=== PATIENT | female | born 1975 | race Caucasian/White ===

== ENCOUNTER → 2020-04-11 13:41 | Outpatient (CLI) | payer BC, SELFPAY ==
--- NOTE | ~2020-04-11 | MM_ITS ---
EXAMINATION: MM screening maciel BI w shabana HISTORY: Screening mammogram TECHNIQUE: Craniocaudal and mediolateral oblique 3-D tomosynthesis images were obtained and synthetic 2-D images were generated. CAD analysis was submitted and interpreted. COMPARISON: 11/05/2018 BREAST PARENCHYMAL COMPOSITION: The breasts are heterogeneously dense, which may obscure small masses . FINDINGS: RIGHT BREAST: There is focal asymmetry in the upper outer quadrant of the breasts. LEFT BREAST: There is no evidence of suspicious mass, calcification, or architectural distortion to s uggest malignancy. There has been no significant interval change. IMPRESSION: 1. Focal asymmetry in the upper outer quadrant of the right breast. 2. Additional mammographic views and possible breast ultrasound are recommended. BI-RADS Category 0: Incomplete: Needs additional imaging evaluation. Reviewed, dictated and finalized at location A. IMPRESSION: 1. Focal asymmetry in the upper outer quadrant of the right breast. 2. Additional mammographic views and possible breast ultrasound are recommended . BI-RADS Category 0: Incomplete: Needs additional imaging evaluation.
== END ==
PROVIDERS: PCP Family Medicine; Visit Provider Obstetrics & Gynecology
DX: Z12.31 Encounter for screening mammogram for malignant neoplasm of breast (principal); R92.8 Other abnormal and inconclusive findings on diagnostic imaging of breast
CPT/HCPCS: 77063; 77067

== ENCOUNTER → 2020-04-26 08:23 | Outpatient (CLI) | payer BC, SELFPAY ==
--- NOTE | ~2020-04-26 | MMUS_ITS ---
EXAMINATION: MM diagnostic mammo unilat RT, US breast RT limited HISTORY: Follow-up right breast asymmetry TECHNIQUE: Additional 3-D tomosynthesis images of the right breast were performed and synthetic 2-D i mages were generated. CAD analysis was submitted and interpreted. High resolution right breast ultras ound was performed. COMPARISON: Comparison to multiple prior studies sequentially, with oldest reviewed study dated 11/05. BREAST PARENCHYMAL COMPOSITION: The breasts are heterogenously dense, which may obscure small masses. FINDINGS: MAMMOGRAPHIC FINDINGS: There is focal asymmetry in the superior aspect of the right breast which is obscured by dense fibrog landular tissue. ULTRASOUND: Right breast ultrasound: At 10:00, 4 cm from the nipple there is a 1.5 cm cyst corresponding to the area of mammographic abnor mality. No suspicious masses to suggest malignancy. IMPRESSION: 1. No evidence for malignancy of the right breast. 2. Routine yearly screening mammogram and regular clinical breast examination are recommended. BI-RADS Category 2: Benign finding(s). Reviewed, dictated and finalized at location A. IMPRESSION: 1. No evidence for malignancy of the right breast. 2. Routine yearly screening mammogram and regular clinical breast examination a re recommended. BI-RADS Category 2: Benign finding(s).
== END ==
PROVIDERS: PCP Family Medicine; Visit Provider Obstetrics & Gynecology
DX: R92.8 Other abnormal and inconclusive findings on diagnostic imaging of breast (principal)
CPT/HCPCS: 76642; 77065

== ENCOUNTER → 2020-09-18 15:43 | Outpatient (REF) | payer BC, SELFPAY | LOC: ANHLAB 15:43 | PROVIDERS: PCP Family Medicine; Visit Provider Nurse Practitioner | DX: L98.9 Disorder of the skin and subcutaneous tissue, unspecified (principal) | CPT/HCPCS: 88305 ==

== ENCOUNTER → 2020-10-26 15:24 | Outpatient (REF) | payer BC, SELFPAY | LOC: ANHLAB 15:24 | PROVIDERS: PCP Family Medicine; Visit Provider Nurse Practitioner | DX: D22.5 Melanocytic nevi of trunk (principal) | CPT/HCPCS: 88305 ==

== ENCOUNTER 2021-01-29 19:33 | Emergency (ER) | payer BC, SELFPAY ==
[2021-01-29] VITALS (19 sets, daily range): BP systolic 93–129; BP diastolic 37–105; PULSE 62–154; RESP 12–21; TEMP 36.7; O2SAT 99–100
--- NOTE | ~2021-01-29 | XR_ITS ---
EXAMINATION: XR chest 2V EXAM DATE: 01/29/2021 20:11 INDICATION: Tachycardia for 2 days. TECHNIQUE: Frontal and lateral projections of the chest obtained and reviewed. There is no prior mo dy for comparison. FINDINGS: The lungs are clear. There are no pleural effusions. The cardiomediastinal silhouette is within normal limits. There is no pneumothorax suspected. Mild lower thoracic dextroscoliosis. IMPRESSION: No acute cardiopulmonary findings. Reviewed, dictated and finalized at location A.
--- NOTE | 2021-01-29 19:45 | ECG_ITS ---
Measurements Intervals [place] Rate: 153 P: CT: 0 QRS: 52 QRSD: 77 T: 0 QT: 165 QTc: 264 Interpretive Statements ATRIAL FLUTTER/TACHYCARDIA WITH RAPID VENTRICULAR RESPONSE INCOMPLETE RIGHT BUNDLE BRANCH BLOCK ST-T WAVE ABNORMALITY IN ANTEROLAT/INF LEADS- CONSIDER ISCHEMIA ABNORMAL ECG Electronically Signed On 01-29-2021 20:19:38 CDT by Blue Ledesma D.O.
[2021-01-29 19:55] LABS: Basophils Percent Auto 0.6 % (0.2-1.2); Eosinophils Absolute Auto 0.2 K/mm3 (0-0.3); Eosinophils Percent Auto 2.5 % (0-4.4); Hematocrit 41.3 % (37.0-47.0); Hemoglobin 13.5 g/dL (12.0-15.0); Immature Granulocyte Absolute 0.02 K/mm3 (0.00-0.031); Immature Granulocyte Percent A 0.3 % (0-0.5); Lymphocytes Absolute Auto 2.18 K/mm3 (0.9-3.2); Mean Corpuscular HGB Conc 32.7 g/dl (32-36); Mean Corpuscular Volume 88.6 fl (80-100); Mean Platelet Volume 9.6 fl (7.4-10.4); Monocytes Absolute Auto 0.6 K/mm3 (0.1-0.6); Monocytes Percent Auto 7.8 % (2.6-8.5); Neutrophils Absolute Auto 4.3 K/mm3 (1.3-6.7); Neutrophils Percent Auto 58.8 % (45.5-73.1); Platelet Count Result 306 k/mm3 (150-375); Red Blood Count 4.66 M/mm3 (4.2-5.4); Red Cell Distribution Width 12.6 % (11.5-14.5); White Blood Count 7.3 K/mm3 (4.5-10.0)
[2021-01-29 20:05] LABS: Anion Gap 6 mmol/L (8-16); Blood Urea Nitrogen 14 mg/dL (7-17); Calcium 9.7 mg/dL (8.4-10.2); Carbon Dioxide 29 mmol/L (22-30); Chloride 107 mmol/L (98-107); Estimated CRCL calculation 71 ml/min; Estimated Glomerular Filt Rate > 60; Glucose 94 mg/dL (65-110); Potassium 4.1 mmol/L (3.4-5.0); Sodium 142 mmol/L (137-145)
[2021-01-29 20:09] LABS: Partial Thromboplastin Time 31.5 SECONDS (22.3-36.8); Prothrombin Time 12.7 Seconds (11.1-14.7)
[2021-01-29 20:17] LABS: Troponin I < 0.012 ng/mL (0.000-0.034)
[2021-01-29] MEDS: ASPIRIN 81 MG CHEWABLE TABLET 324 MG PO (20:49)
--- NOTE | 2021-01-29 21:03 | ED.GENADULT ---
HPI - General Adult General Chief complaint: Arrhythmia/Palpitations Stated complaint: palpations Time Seen by Provider: 01/29/21 20:40 Source: patient History of Present Illness HPI narrative: Patient is a 45 y/o female complaining of heart palpitation starting 4 hours ago. She describes her palpitation as heart beating fast. There is no known alleviating or exacerbating factor. She has some mild SOB and chest tightness. Of note, she had a similar episode 2 days ago, which resolved spontaneously. Related Data Allergies Allergy/AdvReac Type Severity Reaction Status Date / Time No Known Allergies Allergy Verified 01/29/21 19:44 Review of Systems Constitutional: Constitutional: Denies chills, Denies fever(s), Denies headache(s) and Denies weakness Eyes: Eyes: Denies blurry vision ENT: Denies headache(s) and Denies neck pain Cardiovascular: Cardiovascular: Reports chest pain, Reports rapid heart rate and Reports dyspnea Respiratory: Respiratory: Denies cough and Reports dyspnea Gastrointestinal: Gastrointestinal: Denies abdominal pain, Denies diarrhea, Denies nausea and Denies vomiting Genitourinary: Genitourinary: Denies hematuria and Denies dysuria Musculoskeletal: Musculoskeletal: Denies back pain and Denies neck pain Neurologic: Denies headache(s) and Denies weakness Exam Const: General: no acute distress and well developed Orientation/consciousness: oriented to person, oriented to place, oriented to time and patient oriented x3 HENMT: Head: normocephalic Ears: external ears normal General nose exam: Normal external nose present Eyes: General: appearance normal, both eyes and all related structures Conjunctivae: conjunctivae normal Neck: Neck: normal visual inspection and full ROM Chest: Chest palpation & inspection: normal inspection of the chest and no tenderness Resp: Effort & Inspection: normal respiratory effort Auscultation: clear to auscultation bilaterally Cardio: Rate: tachycardic Rhythm: regular rhythm GI: GI Palp: No abdominal tenderness and Yes Soft to palpation Skin: General skin exam: normal color and turgor normal Neuro: General: oriented to person, oriented to place, oriented to time and patient oriented x3 Cognition (Neuro): normal cognition Extrem: General: normal to inspection, full ROM and no pedal edema Psych: Appearance: grossly normal Mental Status: mental status grossly normal Affect: normal affect Course Reevaluation(s) Reevaluation #1: Rechecked. Patient feels well. She has no heart palpitation, chest pain or SOB at this time. I instructed patient to follow with Dr. Baker. Date: 01/29/21 Time: 23:35 Consultations Consultation #1: Discussed with Dr. Baker, who reviewed EKG and recommends discharging patient on Metoprol 25 mg daily and they will contact patient tomorrow for follow up. Date: 01/29/21 Time: 23:31 Vital Signs Vital signs: Vital Signs Temperature 36.7 C 01/29/21 19:40 Pulse Rate 153 H 01/29/21 19:40 Respiratory Rate 20 01/29/21 19:40 Blood Pressure 118/48 L 01/29/21 19:40 Pulse Oximetry 100 01/29/21 19:40 Temperature 36.7 C 01/29/21 19:40 Pulse Rate 67 01/29/21 22:45 Respiratory Rate 13 01/29/21 22:45 Blood Pressure 96/65 L 01/29/21 22:16 Pulse Oximetry 100 01/29/21 22:45 Medical Decision Making Vital Signs Vital Signs: Vital Signs Temperature 36.7 C 01/29/21 19:40 Pulse Rate 153 H 01/29/21 19:40 Respiratory Rate 20 01/29/21 19:40 Blood Pressure 118/48 L 01/29/21 19:40 Pulse Oximetry 100 01/29/21 19:40 Temperature 36.7 C 01/29/21 19:40 Pulse Rate 67 01/29/21 22:45 Respiratory Rate 13 01/29/21 22:45 Blood Pressure 96/65 L 01/29/21 22:16 Pulse Oximetry 100 01/29/21 22:45 Lab Data Result diagrams: 01/29/21 19:48 01/29/21 19:48 Labs: Lab Results 01/29/21 01/29/21 01/29/21 Range/Units 19:48 19:48 19:48 WBC 7.3 (4.5-10.0) K/mm3 RBC
[2021-01-29 21:24] LABS: Add Urine Microscopic? YES; Amorphous Sediment Urine Few; Appearance Urine Clear (Clear); Bacteria Urine Trace /hpf; Bilirubin Urine Negative (Negative); Blood Urine 3+ (Negative); Color Urine Yellow (Yellow); Glucose Urine UA Negative (Negative); Ketones Urine Negative (Negative); Leukocyte Esterase Ur Negative LEU/UL (Negative); Mucus Urine Rare /lpf; Nitrate Urine Negative (Negative); Protein Urine 1+ mg/dL (Negative); RBC Urine >75 /hpf (0-2); Specific Grav Ur 1.016 (1.001-1.035); Squamous Epithelial Cell Urine Few /hpf (Few); Urobilinogen Urine Negative mg/dL (<2.0); WBC Urine 0-3 /hpf
--- NOTE | 2021-01-29 22:05 | ECG_ITS ---
Measurements Intervals [place] Rate: 80 P: 75 GA: 119 QRS: 69 QRSD: 83 T: 33 QT: 355 QTc: 410 Interpretive Statements SINUS RHYTHM WITH SHORT GA INTERVAL INCOMPLETE RIGHT BUNDLE BRANCH BLOCK BASELINE ARTIFACT- I, II, AVR, AVL, AVF, V1, V3-V6 BORDERLINE ECG Electronically Signed On 01-30-2021 6:39:26 CDT by Blue Ledesma D.O.
[2021-01-29] MEDS: SODIUM CHLORIDE 0.9% IV 1,000 ML 999 ML IV CONT (22:32)
[2021-01-29 23:02] LABS: Troponin I < 0.012 ng/mL (0.000-0.034)
[2021-01-30 00:05] VITALS: BP 96/65; PULSE 88; RESP 18; O2SAT 100
== END 2021-01-30 00:06 | disposition home or self-care (01) ==
PROVIDERS: Emergency Medicine; Emergency Provider Emergency Medicine; PCP Family Medicine
DX: I48.92 Unspecified atrial flutter (principal); R00.0 Tachycardia, unspecified; R06.02 Shortness of breath; R07.9 Chest pain, unspecified
CPT/HCPCS: 36415; 71046; 80048; 81001; 81025; 84443; 84484; 85025; 85610; 85730; 93005; 96360; 99284; A9270; J7030

== ENCOUNTER → 2021-04-13 07:53 | Outpatient (CLI) | payer BC, SELFPAY ==
--- NOTE | ~2021-04-13 | MM_ITS ---
EXAMINATION: MM diagnostic maciel BI w shabana HISTORY: Fibrocystic breast disease TECHNIQUE: Additional 3-D tomosynthesis images of the breasts were performed and synthetic 2-D images were generated. CAD analysis was submitted and interpreted. COMPARISON: Comparison to multiple prior studies sequentially, with oldest reviewed study dated 11/05. BREAST PARENCHYMAL COMPOSITION: The breasts are heterogenously dense, which may obscure small masses. FINDINGS: No significant change to mass in the upper outer quadrant of the right breast which is obsc ured by overlying fibroglandular tissue, previously characterized as a cyst by ultrasound. No new mas ses, calcifications or architectural distortion to suggest malignancy. IMPRESSION: 1. No mammographic evidence for malignancy in either breast. 2. Routine yearly screening mammogram and regular clinical breast examination are recommended. BI-RADS Category 2: Benign finding(s). Reviewed, dictated and finalized at location A. IMPRESSION: 1. No mammographic evidence for malignancy in either breast. 2. Routine yearly screening mammogram and regular clinical breast examination a re recommended. BI-RADS Category 2: Benign finding(s).
== END ==
PROVIDERS: PCP Family Medicine; Visit Provider Obstetrics & Gynecology
DX: R92.8 Other abnormal and inconclusive findings on diagnostic imaging of breast (principal)
CPT/HCPCS: 77062; 77066; G0279

== ENCOUNTER → 2022-04-29 08:17 | Outpatient (CLI) | payer BC, SELFPAY ==
--- NOTE | ~2022-04-29 | MMUS_ITS ---
EXAMINATION: MM diagnostic maciel BI w shabana, US breast RT complete HISTORY: Fibrocystic breast disease TECHNIQUE: Additional 3-D tomosynthesis images of the breasts were performed and synthetic 2-D images were generated. CAD analysis was submitted and interpreted. High resolution complete right breast ul trasound was performed. COMPARISON: Comparison to multiple prior studies sequentially, with oldest reviewed study dated 11/05. BREAST PARENCHYMAL COMPOSITION: The breasts are heterogeneously dense, which may obscure small masses FINDINGS: MAMMOGRAPHIC FINDINGS: No discrete mass, suspicious cluster of calcifications or architectural distortion is identified in e ither breast. ULTRASOUND: Complete right breast US of all 4 quadrants of the breasts and retroareolar region was reviewed. At 4 :00, 4 cm from the nipple, there is a 3 mm cyst. At 9:00, 4 cm from the nipple, there is a 5 mm cyst. At 10:00, 4 cm from the nipple there is an 11 mm cyst. No suspicious masses to suggest malignancy. IMPRESSION: 1. No evidence for malignancy in either breast. 2. Routine yearly screening mammogram and regular clinical breast examination are recommended. BI-RADS Category 2: Benign finding(s). Reviewed, dictated and finalized at location A. IMPRESSION: 1. No evidence for malignancy in either breast. 2. Routine yearly screening mammogram and regular clinical breast examination a re recommended. BI-RADS Category 2: Benign finding(s).
== END ==
PROVIDERS: PCP Physician Assistant; Visit Provider Obstetrics & Gynecology
DX: N60.11 Diffuse cystic mastopathy of right breast (principal); N60.12 Diffuse cystic mastopathy of left breast
CPT/HCPCS: 76641; 77062; 77066; G0279

== ENCOUNTER 2022-07-20 16:02 | Emergency (ER) | payer OTHER, SELFPAY ==
--- NOTE | ~2022-07-20 | CT_ITS ---
EXAMINATION: CTA chest PE protocol DATE: 07/20/2022 18:10 INDICATION: Chest pain w/ mild dyspnea x 4 days, elevated D-dimer TECHNIQUE: Computed tomography angiography (CTA) of the chest was performed with 100 mL Omnipaque-350 intravenous contrast timed to evaluate the pulmonary arteries. Coronal maximum intensity projection 3D-reconstructions were created by the technologist. The dose-length product (DLP) was 230.40 mGy-cm. Automated exposure control and iterative reconstruction technique were employed. COMPARISON: None. FINDINGS: Lung parenchyma and airways: Dependent atelectasis/scar. Pleura: Unremarkable. Thoracic inlet, axillae and chest wall: Unremarkable. Thoracic aorta: Normal. Mediastinum: Normal. Heart and pericardium: Normal. Coronary artery calcifications: Absent. Upper abdomen: No significant finding. Bones: No acute osseous finding. Pulmonary arteries: Study quality: Adequate. No pulmonary emboli detected. IMPRESSION: No CT evidence of acute pulmonary embolus. Reviewed, dictated and finalized at location K. RNET SOURCER
--- NOTE | ~2022-07-20 | XR_ITS ---
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 RESULT: Lines, tubes, and devices: None. Lungs and pleura: Minimal linear bibasilar opacities likely represent scar/atelectasis. Cardiomediastinal silhouette: Stable. Other: No acute osseous or upper abdominal finding. IMPRESSION: No acute cardiopulmonary process. Reviewed, dictated and finalized at location K. R BAG MAKING MACHINIST
[2022-07-20 16:05] VITALS: PULSE 97
--- NOTE | 2022-07-20 16:12 | ECG_ITS ---
Measurements Intervals [place] Rate: 80 P: 71 MS: 135 QRS: 80 QRSD: 94 T: 42 QT: 351 QTc: 407 Interpretive Statements SINUS RHYTHM NORMAL ECG NO PREVIOUS ECG AVAILABLE FOR COMPARISON Electronically Signed On 07-20-2022 16:35:16 CELL FEED DEPARTMENT SUPERVISOR by Blue Ledesma D.O.
[2022-07-20 16:16] VITALS: BP 105/64; PULSE 97; RESP 16; TEMP 36.9; O2SAT 97
--- NOTE | 2022-07-20 16:16 | ED.CHESTPAIN ---
HPI - Chest Pain General Chief Complaint: Chest Pain Stated Complaint: chest pains has been diagnosed with Afib Time Seen by Provider: 07/20/22 16:16 Source: patient and RN notes reviewed Mode of arrival: ambulatory Limitations: no limitations History of Present Illness HPI narrative: patient has been having some chest pressure the 1st 2 days then last evening had chest pain and shortness of breath. No nausea vomiting or diaphoresis. Patient has a history of atrial fibrillation after a COVID vaccine and was taken off all medications for atrial fibrillation by her medicinal chemist. MD complaint: chest discomfort Onset (ago): day(s) (4) Onset: during rest Pain location: substernal Pain radiation: none Severity: moderate Quality: dull and burning Relieving factors: nothing Exacerbating factors: nothing Associated symptoms: dyspnea Treatment prior to arrival: none Risk Factors Coronary artery disease risk factors: cocaine use (AFIB) Thoracic aortic dissection risk factors: none Related Data Allergies Allergy/AdvReac Type Severity Reaction Status Date / Time No Known Allergies Allergy Verified 07/20/22 16:21 Review of Systems Constitutional: Constitutional: Denies excessive sweating Gastrointestinal: Gastrointestinal: Denies nausea and Denies vomiting PMFSH Past Medical History Medical History (Updated 07/20/22 @ 18:47 by El Manzanares MD) Abnormal mammogram 04-11-2020 right breast focal asymmetry dx mammogram and US done 04/26/2020 Benign recommend Annual screening Abnormal Pap smear of cervix 10/12/18 ascus hpv negative Fibrocystic breast changes, bilateral Paroxysmal A-fib Surgical History Surgical History H/O section 07/29/97 primary c/s--macrosomia 01/11/02 rpt c/s History of dilation and curettage 01/02/17 hscope d&c/endometrial ablation--benign History of endometrial ablation 01/02/17 hscope d&c/endometrial ablation--benign History of left knee surgery (~1993) Family History Family History Grandparent Hypertension maternal grandmother Diabetes mellitus maternal grandfather Father Alcohol abuse Sibling Rheumatoid arthritis sister Social History Social History Smoking status: Never smoker Alcohol intake: current Drinks per week: 4 Substance use: never Substance use type: does not use Additional living arrangements comments: 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 HENMT: Head: normal to inspection Ears: external ears normal Eyes: Conjunctivae: conjunctivae normal Pupils: Equal, round and reactive pupils present EOM: EOMs intact bilaterally Neck: Neck: normal visual inspection Chest: Chest palpation & inspection: normal inspection of the chest and tenderness ( Mild tenderness over the sternum) Resp: Effort & Inspection: normal respiratory effort Auscultation: clear to auscultation bilaterally Cardio: Rate: regular rate Rhythm: regular rhythm GI: GI Palp: Yes Soft to palpation and No Tenderness to palpation present (GI) Auscultation: normal bowel sounds Back/Spine/Pelvis: Cervical Spine: cervical ROM normal Thoracic/Lumbar Spine: thoraco-lumbar ROM normal Skin: General skin exam: normal color Rashes: no rashes Neuro: General: patient oriented x3, moves all extremities, no focal motor deficits and CN's II-XI intact bilaterally Speech: normal speech Gait exam (Neuro): Normal
[2022-07-20 16:22] VITALS: O2SAT 100
--- NOTE | 2022-07-20 16:22 | PC.NURSE ---
patient states she had left over metoprolol at home and took one this morning around 0900.
--- NOTE | 2022-07-20 16:59 | PC.NURSE ---
RN at bedside during ERP exam.
[2022-07-20 17:21] LABS: Basophils Absolute Auto 0.03 K/mm3 (0.00-0.10); Basophils Percent Auto 0.4 % (0.0-1.0); Eosinophils Absolute Auto 0.09 K/mm3 (0.02-0.50); Eosinophils Percent Auto 1.1 % (1.0-6.0); Hematocrit 38.4 % (35.0-49.0); Hemoglobin 12.9 g/dL (12.0-15.0); Immature Granulocyte Absolute 0.02 K/mm3 (0.00-0.00); Immature Granulocyte Percent A 0.2 % (0.0-0.0); Lymphocytes Absolute Auto 1.52 K/mm3 (1.10-4.50); Lymphocytes Percent Auto 18.1 % (18.0-42.0); Mean Corpuscular HGB Conc 33.6 g/dL (32.0-36.0); Mean Corpuscular Hemoglobin 29.9 pg (27.0-31.0); Mean Corpuscular Volume 88.9 fL (78.0-102.0); Mean Platelet Volume 9.2 fl (9.2-11.8); Monocytes Percent Auto 9.5 % (2.0-11.0); Neutrophils Percent Auto 70.7 % (50.0-70.0); Platelet Count Result 280 K/mm3 (150-420); Red Blood Count 4.32 M/mm3 (4.20-5.40); Red Cell Distribution Width 12.7 % (11.6-14.4); White Blood Count 8.4 K/mm3 (4.8-10.8)
[2022-07-20] MEDS: ASPIRIN 81 MG CHEWABLE TABLET 324 MG PO (17:21)
[2022-07-20 17:38] LABS: Alanine Aminotransferase 13 U/L (14-59); Albumin Level 3.7 g/dL (3.4-5.0); Alkaline Phosphatase 76 U/L (46-116); Anion Gap 3 mmol/L (8-16); Aspartate Amino Transferase 11 U/L (15-37); Bilirubin,Total 0.6 mg/dL (0.00-1.00); Blood Urea Nitrogen 12 mg/dL (7-18); CRP 3.3 mg/dL (0.0-0.9); Calcium 8.6 mg/dL (8.5-10.1); Carbon Dioxide 33 mmol/L (21-32); Chloride 102 mmol/L (98-108); Estimated Glomerular Filt Rate > 60; Glucose 111 mg/dL (70-99); Osmolality Calculated 286 mOsm/kg (285-295); Potassium 3.9 mmol/L (3.5-5.1); Sodium 138 mmol/L (136-145); Total Protein 7.3 g/dL (6.4-8.2)
[2022-07-20 17:39] LABS: Troponin I < 4.0 ng/L (0.00-60.4)
[2022-07-20 17:41] LABS: D Dimer 0.58 mg/L (0.19-0.50)
[2022-07-20 18:55] VITALS: BP 105/64; PULSE 97; RESP 16; TEMP 36.7; O2SAT 97
== END 2022-07-20 18:59 | disposition home or self-care (01) ==
PROVIDERS: Emergency Provider Emergency Medicine; PCP Family Medicine
DX: R07.89 Other chest pain (principal); R06.02 Shortness of breath; I48.91 Unspecified atrial fibrillation
CPT/HCPCS: 36415; 71046; 71275; 80053; 84484; 85025; 85380; 86140; 93005; 99284; A9270; Q9967

== ENCOUNTER → 2023-05-07 09:20 | Outpatient (CLI) | payer OTHER, SELFPAY ==
--- NOTE | ~2023-05-07 | MM_ITS ---
EXAMINATION: MM diagnostic maciel BI w shabana HISTORY: History of breast cysts TECHNIQUE: ML, MLO and CC 3-D tomosynthesis images of both breasts were performed and synthetic 2-D i mages were generated. CAD analysis was submitted and interpreted. COMPARISON: 04/29/2022 diagnostic bilateral mammogram, complete right breast ultrasound 04/13/2021 diagnostic bilateral mammogram BREAST PARENCHYMAL COMPOSITION: The breasts are heterogeneously dense, which may obscure small masses . FINDINGS: No suspicious mass or architectural distortion, malignant calcification, skin thickening or retraction or significant new or developing density is detected. IMPRESSION: 1. No mammographic evidence of malignancy 2. Routine annual mammographic screening is recommended BI-RADS Category 1: Negative Reviewed, dictated and finalized at location A.
== END ==
PROVIDERS: PCP Family Medicine; Visit Provider Obstetrics & Gynecology
DX: N60.01 Solitary cyst of right breast (principal)
CPT/HCPCS: 77062; 77066; G0279

== ENCOUNTER 2025-01-31 14:17 | Outpatient (CLI) | payer BC, SELFPAY ==
--- NOTE | ~2025-01-31 | MM_ITS ---
EXAMINATION: MM screening maciel BI w shabana HISTORY: Screening TECHNIQUE: Craniocaudal and mediolateral oblique 3-D tomosynthesis images were obtained and synthetic 2-D images were generated. CAD analysis was submitted and interpreted. COMPARISON: Comparison to multiple prior studies sequentially, with oldest reviewed study dated 11/05. BREAST PARENCHYMAL COMPOSITION: The breasts are heterogeneously dense, which may obscure small masses . FINDINGS: There is no evidence of suspicious mass, calcification, or architectural distortion to sug gest malignancy in either breast. IMPRESSION: 1. No mammographic evidence of malignancy. 2. Recommend routine screening mammography in one year. BI-RADS Category 1: Negative Reviewed, dictated and finalized at location B.
--- OUTSIDE RECORDS SUMMARY | 2025-01-31 14:22 | XMS_ITS | Clinical Summary ---
Author Organization [facility] [address] [facility] [address] Address [address] [place] [address] Care Team Providers Care Digital Community Manager Name Role Phone Mahin King MD Primary Care Provider [phone] Allergies No known active allergies Medications azelastine (ASTELIN) 137 mcg (0.1 %) nasal spray USE 1 SPRAY IN EACH NOSTRIL TWICE DAILY 1 Active dronedarone (MULTAQ) 400 mg tablet Take 1 tablet (400 mg total) by mouth 2 (two) times a day Start taking day after cardioversion 60 tablet 5 2 Active metoprolol tartrate (LOPRESSOR) 25 mg immediate release tablet Take 1 tablet (25 mg total) by mouth 2 (two) times a day 60 tablet 11 2 Active Active Problems Problem Noted Date Diagnosed Date Acute sinusitis 02/16/2021 Calf pain 02/16/2021 Cramps of lower extremity 02/16/2021 Deep vein thrombosis (DVT) of lower extremity Fatigue 02/16/2021 Fever 02/16/2021 Fluid level behind tympanic membrane 02/16/2021 Muscle fatigue 02/16/2021 Pharyngitis 02/16/2021 Posterior rhinorrhea 02/16/2021 Traumatic injury of muscle 02/16/2021 Immunizations Immunization Administration Dates Next Due Influenza, Quadrivalent, Spl it, Preservative Free, Intramuscular 05/05/2020 Influenza, Trivalent, Preservative Free, Intramu scular 07/30/2012 Pfizer SARS-CoV-2 Monovalent Vaccination (12+ Yrs) PURPLE 11/11/2020,10/09/2020 Medical History Medical History Date Comments Arrhythmia Family History Medical History Relation Name Comments No Known Problems Brother No Known Problems Father No Known Problems Mother No Known Problems Sister Relation Name Status Comments Brother Alive Father Alive Mother Alive Sister Alive Social History Tobacco Use Types Packs/Day Years Used Date Smoking Tobacco: Never Smokeless Tobacco: Never Personal Safety Answer Date Recorded Getting School Help Needed Not on file 09/26 Comments No Sex and Gender Information Value Date Recorded Sex Assigned at Not on file Legal Sex Female 12:07 AM DEPARTMENT CHAIR Gender Identity Not on file Sexual Orientation Not on file Obstetrics History Last Filed Vital Signs Vital Sign Reading Time Taken Comments Blood Pressure 118/60 08/08/2021 9:14 AM DEPARTMENT CHAIR Pulse 67 08/08/2021 9:14 AM DEPARTMENT CHAIR Temperature - - Respiratory Rate 15 04/18/2021 11:1 5 AM CDT Oxygen Saturation - - Inhaled Oxygen Concentration - - Weight 64.3 kg (141 lb 12.8 oz) 08/08/2021 9:14 AM DEPARTMENT CHAIR Height 160 cm (5' 3) 08/08/2021 9:14 AM DEPARTMENT CHAIR Body Mass Index 25.12 08/08/2021 9:14 AM DEPARTMENT CHAIR Plan of Treatment Health Maintenance Due Date Last Done Comments Breast Cancer Screening-Mammogram 1977 Cervical Cancer Screening 1977 Colon Cancer Screening-Colonoscopy 1977 Depression Screening 1977 Hepatitis C Screening 1977 DTaP/Tdap/Td Vaccine (1 - Tdap) 1988 Hepatitis B Screening 1995 Regular Well Visit/Exam 18-64 1995 Covid-19 Vaccine (3 - 2023-2 5 season) 2024 11/11/2020, 10/09/2020 Influenza Vaccine (Season Ended) 2025 05/05/2020, 07/30/2012 Pneumococcal vaccine <65 Aged Out No longer eligible based on patient's age to complete this topic Insurance [facility] [employer] [place] [employer] Care Teams Digital Community Manager Relationship Specialty Start Date End Date Mahin King MD [address] [place] [address] LAITH SUNG [id number] PCP - General Family Medicine 01/31/21
--- OUTSIDE RECORDS SUMMARY | 2025-01-31 14:22 | XMS_ITS | Referral Summary ---
Author Organization [facility] [place] [place] [address] [facility] [address] Address [address] [place] [address] Care Team Providers Care Baggage Clerk Name Role Phone Mahin King MD Primary Care Provider [phone] Allergies No known active allergies Medications azelastine [...] SARS-CoV-2 Monovalent Vaccination (12+ Yrs) PURPLE 11/11/2020,10/09/2020 Social History Tobacco Use Types Packs/Day Years Used Date Smoking Tobacco: Never Smokeless Tobacco: Never Personal Safety Answer Date Recorded Getting School Help Needed Not on file 09/26 Comments No Sex and Gender Information Value Date Recorded Sex Assigned at Not on file Legal Sex Female 12:07 AM ACUTE DIALYSIS REGISTERED NURSE Gender Identity Not on file Sexual Orientation Not on file Last Filed Vital Signs Vital Sign Reading Time Taken Comments Blood Pressure 118/60 08/08/2021 9:14 AM ACUTE DIALYSIS REGISTERED NURSE Pulse 67 08/08/2021 9:14 AM ACUTE DIALYSIS REGISTERED NURSE Temperature - - Respiratory Rate 15 04/18/2021 11:1 5 AM CDT Oxygen Saturation - - Inhaled Oxygen Concentration - - Weight 64.3 kg (141 lb 12.8 oz) 08/08/2021 9:14 AM ACUTE DIALYSIS REGISTERED NURSE Height 160 cm (5' 3) 08/08/2021 9:14 AM ACUTE DIALYSIS REGISTERED NURSE Body Mass Index 25.12 08/08/2021 9:14 AM ACUTE DIALYSIS REGISTERED NURSE Plan of Treatment Not on file [place] [employer] [place] [employer] [place] [employer] Care Teams Baggage Clerk Relationship Specialty Start Date End Date Mahin King MD [address] [place] [address] LAITH SUNG [id number] PCP - General Family Medicine 01/31/21
--- OUTSIDE RECORDS SUMMARY | 2025-01-31 14:22 | XMS_ITS | Clinical Summary ---
Author Organization [facility] Care Team Providers Care Supervisory Examiner Name Role Phone Unavailable Primary Care Provider Unavailabl e Social History Tobacco Use Types Packs/Day Years Used Date Smoking Tobacco: Never Assessed Comments Unknown Sex and Gender Information Value Date Recorded Sex Assigned at Not on file Legal Sex Female 10:51 AM QUILL FIXER Gender Identity Not on file Sexual Orientation Not on file Plan of Treatment Health Maintenance Due Date Last Done Comments Hepatitis C Virus (HCV) Screening 1977 TdaP Immunization 1977 Hepatitis B Immunization (1 of 3 - 19+ 3-dose series) 1996 Pap Smear 1998 Cervical Cancer Screening (CCS) 2007 HPV/Cotest 2007 Discussion re Starting/Frequency of Mammograms 2017 Colonoscopy 2022 Colorectal Cancer Screening 2022 Influenza Immunization (#1) 03/14/202404/14, 07/30/2012 SARS-COV-2 Immunization ( season) 2024 11/11/2020, 10/09/2020 Respiratory Syncytial Virus (RSV) Immunization (Adult) (1 - 1-dose 75+ series) 2052 Meningococcal Immunization (ACWY) Aged Out No longer eligible b ased on patient's age to complete this topic Pneumococcal Immunization Combined Aged Out No longer eligible b ased on patient's age to complete this topic Rotavirus Immunization Aged Out No lo nger eligible based on patient's age to complete this topic
--- OUTSIDE RECORDS SUMMARY | 2025-01-31 14:22 | XMS_ITS | Clinical Summary ---
Author Organization [facility] Address [address] [place] [address] Care Team Providers Care Manager Personal Name Role Phone Mahin King MD Primary Care Provider [phone] Gregoria Pate ANP-BC Unavailable + Danny Shearer MD Unavailable + [phone] Bonita Sol PA-C Unavailable + [phone] Allergies No known active allergies Medications AZELASTINE 137 MCG/SPRAY nasal spray SPRAY 1 SPRAY INTO EACH NOSTRIL TWICE A DAY FOR 30 DAYS 01/08/2023 Active ipratropium (ATROVENT) 0.03 % nasal spray INSTILL 2 SPRAYS INTO EACH NOSTRIL TWICE A DAY 01/15/2023 Active cetirizine (ZYRTEC) 5 MG tablet Take 1 tablet (5 mg total) by mouth daily. Active metoprolol succinate ER (TOPROL-XL) 25 MG 24 hr tablet Take 1 tablet (25 mg total) by mouth daily. 90 tablet 3 03/10/2024 Active Active Problems Problem Noted Date Diagnosed Date Bradycardia 03/10/2024 Atrial flutter ([facility]) 07/26/2022 Assessment & Plan (07/26/2022 12:23 PM RIDE ASSEMBLY SUPERVISOR): Historically it sounds like the patient's symptoms occurred primarily with her atrial flutter and the rapid rates seen with this. Discussion with ablation had previously been made but on medical therapy she had done well. Paroxysmal A-fib ([facility]/HCC) Assessment & Plan (07/26/2022 12:25 PM RIDE ASSEMBLY SUPERVISOR): The patient's phone sunny states that she has had episodes of atrial fib in the 120s that have been short-lived and the patient has not recognized. Presently it may be reasonable to manage her atrial dysrhythmias with as needed use of antiarrhythmic therapy, her Multaq seems to have worked in the past and continuing this for any persistent recurrence of her atrial flutter or atrial fibrillation may be reasonable. The patient has wanted to avoid persistent use of medications. I will obtain the patient's old records from [facility] and we will discuss this plan further in follow-up. Chest pain Assessment & Plan (07/26/2022 12:22 PM RIDE ASSEMBLY SUPERVISOR): Patient's chest discomfort is atypical and does not likely represent coronary ischemia. She has been able to work out and has had no recurrence of her symptoms. I doubt any further investigation will be necessary unless an ischemic evaluation was not performed by [facility] prior to initiating her Multaq within the last 2 years. Family History Medical History Relation Comments Hypertension Maternal Grandmother Relation Status Comments Maternal Grandmother Social History Tobacco Use Types Packs/Day Years Used Date Smoking Tobacco: Never Tobacco Cessation:Counseling Given: Not Answered Alcohol Use Standard Drinks/Week Comments Yes 0 (1 standard drink = 0.6 oz pur e alcohol) Comments Unknown Sex and Gender Information Value Date Recorded Sex Assigned at Not on file Legal Sex Female 4:02 PM RIDE ASSEMBLY SUPERVISOR Gender Identity Not on file Sexual Orientation Not on file Last Filed Vital Signs Vital Sign Reading Time Taken Comments Blood Pressure 101/54 03/10/2024 2:49 PM CDT Pulse 66 03/10/2024 2:49 PM CDT Temperature - - Respiratory Rate 14 03/10/2024 2:49 PM CDT Oxygen Saturation 100% 03/10/2024 2:49 PM CDT Inhaled Oxygen Concentration - - Weight 70.3 kg (155 lb) 03/10/2024 2:49 PM CDT Height 160 cm (5' 3) 03/10/2024 2:49 PM CDT Body Mass Index 27.46 03/10/2024 2:49 PM CDT Plan of Treatment Upcoming Encounters Date Type Department Care Team (Late st Contact Info) Description 03/09/2025 2:00 PM CDT Office Visit [facility] [place] [phone] Danny Shearer MD [address] [place] [address] Health Maintenance Due Date Last Done Comments Cervical Cancer Screening Pa p Smear (Age 30 to 64) Every 3 Years 1977 Colorectal Cancer Screening Colonoscopy (10 Years) 1977 Annual Physical 1980 Hepatitis C 1995 DTaP, Tdap and Td Vaccines ( 1 - Tdap) 1996 Hepatitis B Vaccines (1 of 3 - 19+ 3-dose series) 1996 Cervical Cancer Screening Pa p with HPV Testing (Age 30 to 64) Every 5 Years 2007 Cervical Cancer Screening wi th HPV 2007 Mammogram Screening 2017 COVID-19 Vaccine (2023-2 5 season) 2024 10/24/2021, 11/11/2020, 10/09/2020 Meningococcal B Vaccine Aged Out No l onger eligible based on patient's age to complete this topic Meningococcal Vaccine Aged Out No artur krzysztof eligible based on patient's age to complete this topic Pneumococcal Vaccine: Pediatrics (0 to 5 Years) and At-Risk Patients (6 to 49 Years) Aged Out No longer eligible b ased on patient's age to complete this topic RSV Immunizations Under 20 Months Aged Out No longer eligible b ased on patient's age to complete this topic Insurance [employer] Care Teams Manager Personal Relationship Specialty Start Date End Date Mahin King MD [address] [place] [address] [phone] PCP - General FAMILY PRACTICE 07/24/22 Gregoria Pate, [facility]- [address] [place] [phone] [place] Complaint Evaluation Officer NURSE PRACTITIONER ADULT HEALTH 07/31/22 Danny Shearer MD [address] [place] [phone] Consulting Physician CLINICAL CARDIAC ELECTROPHYSIOLOGY 02/09/24 Bonita Sol PA-C [address] [place] [phone] Referring Physician PHYSICIAN ORGAN INSTALLER 03/08/24
== END 2025-01-31 14:18 | disposition home or self-care (01) ==
LOC: CHSIMG 14:19
PROVIDERS: PCP Family Medicine; Visit Provider Obstetrics & Gynecology
DX: Z12.31 Encounter for screening mammogram for malignant neoplasm of breast (principal)
CPT/HCPCS: 77063; 77067

== ENCOUNTER 2025-04-05 16:59 | Emergency (ER) | payer BC, SELFPAY ==
--- NOTE | ~2025-04-05 | XR_ITS ---
Examination: XR chest 2V Clinical History: chest wall pain left side Comparison: 07/20/2022 Technique: PA and Lateral Findings: Cardiomediastinal silhouette normal size and configuration. Lungs clear. No acute bony abnormality. IMPRESSION: 1. No acute cardiopulmonary findings. Reviewed, dictated and finalized at location R.
--- NOTE | ~2025-04-05 | US_ITS ---
Ultrasound venous duplex upper extremity,left arm CLINICAL HISTORY: PAIN . Comparison: None. TECHNIQUE: Grayscale, color, duplex/spectral Doppler sonography. FINDINGS: Left upper extremity internal jugular, subclavian, axillary, brachial, basilic, cephalic veins compressible (where possible) and color Doppler patent with normal phasic flow. No internal echoes. IMPRESSION: 1. No left upper extremity DVT. Reviewed, dictated and finalized at location R.
--- NOTE | 2025-04-05 17:02 | ECG_ITS ---
Test Date: 2025-04-05 17:33:15 Measurements Intervals [place] Rate: 63 P: 67 [place]: 133 QRS: 63 QRSD: 82 T: 29 QT: 392 QTc: 403 Interpretive Statements SINUS RHYTHM POSSIBLE RIGHT VENTRICULAR CONDUCTION DELAY [RSR (QR) IN V1/V2] NONSPECIFIC T-WAVE ABNORMALITY BORDERLINE ECG No previous ECG available for comparison Electronically Signed On 04-06-2025 07:23:44 CDT by Viraj Suarez M.D.
[2025-04-05 17:29] VITALS: BP 116/44; PULSE 64; RESP 16; TEMP 36.6; O2SAT 98
--- NOTE | 2025-04-05 17:41 | ED.GENADULT ---
HPI - General Adult General Chief complaint: Extremity Injury, Upper <Jeannette Arnold November, CUSTOMER SUPPLY COORDINATOR - Last Filed: 04/06/25 19:55> Stated complaint: LEFT ARM PAIN <Jeannette Arnold November, CUSTOMER SUPPLY COORDINATOR - Last Filed: 04/06/25 19:55> Time Seen by Provider: 04/05/25 17:41 <Jeannette Arnold November, CUSTOMER SUPPLY COORDINATOR - Last Filed: 04/06/25 19:55> Focused HPI: Nela Thakur is a 50 y/o female who presents with reports of having a hx of afib, and was on metoprolol for it, and she wanted to try to get off of the medication and is wearing a heart monitor to check for Afib, however the past 4 days she started to have left lateral chest and left arm pain. SHe states holding it makes it better, the pain is constantly dull but at times shooting down left arm GENERAL: Well-appearing, well-nourished, and in no acute distress. HEAD: Normocephalic, atraumatic. CHEST: Clear to auscultation. ?No respiratory distress. HEART: Regular rate and rhythm.? NEURO: ?Alert and oriented x3. Patient screened in triage and initial orders placed.? ?Additional care and disposition to be based upon?diagnostic testing and treatment. <Jeannette Arnold November, CUSTOMER SUPPLY COORDINATOR - Last Filed: 04/06/25 19:55> Focused HPI: Nela Thakur is a 50 y/o female who presents with reports of having a hx of afib, and was on metoprolol for it, and she wanted to try to get off of the medication and is wearing a heart monitor to check for Afib, however the past 4 days she started to have left lateral chest and left arm pain. She states holding it makes it better, the pain is constantly dull but at times shooting down left arm. No recent injuries. Feels like the pain is in a vein. GENERAL: Well-appearing, well-nourished, and in no acute distress. HEAD: Normocephalic, atraumatic. CHEST: Clear to auscultation. ?No respiratory distress. HEART: Regular rate and rhythm.? NEURO: ?Alert and oriented x3. Patient screened in triage and initial orders placed.? ?Additional care and disposition to be based upon?diagnostic testing and treatment. <Leda Barnes PA-C - Last Filed: 04/06/25 02:02> Related Data Home medications: Home Medications ?Medication ?Instructions ?Recorded ?Confirmed ?Last Taken ?Type cetirizine 10 mg tablet (Zyrtec) 10 mg PO DAILY PRN 01/15/23 04/19/24 Unknown History metoprolol tartrate 50 mg tablet 25 mg PO DAILY 01/15/23 04/19/24 Unknown History <Jeannette Boss, CUSTOMER SUPPLY COORDINATOR - Last Filed: 04/06/25 19:55> Allergies/adverse reactions: Allergies Allergy/AdvReac Type Severity Reaction Status Date / Time No Known Allergies Allergy Verified 04/05/25 17:02 <Jeannette Bsos, - Last Filed: 04/06/25 19:55> Review of Systems Review of Systems: All systems reviewed & are unremarkable except as noted in HPI and below <Leda Barnes PA-C - Last Filed: 04/06/25 02:02> [facility] Past Medical History Medical History: Medical History Allergic rhinitis Paroxysmal A-fib a-fib/a-flutter <Jeannette Boss, CUSTOMER SUPPLY COORDINATOR - Last Filed: 04/06/25 19:55> Surgical History Surgical History: Surgical History H/O section 07/29/97 primary c/s--macrosomia 01/11/02 rpt c/s History of dilation and curettage 01/02/17 hscope d&c/endometrial ablation--benign History of endometrial ablation 01/02/17 hscope d&c/endometrial ablation--benign History of left knee surgery (~1993) <Jeannette Boss, CUSTOMER SUPPLY COORDINATOR - Last Filed: 04/06/25 19:55> Family History Family History: Family History Grandparent Hypertension maternal grandmother Diabetes mellitus maternal grandfather Father Alcohol abuse Sibling Rheumatoid arthritis sister <Jeannette Boss, CUSTOMER SUPPLY COORDINATOR - Last Filed: 04/06/25 19:55> Social History Social History: Social History (Updated 04/19/24 @ 10:48 by Bailey Payan [facility]) Smoking status: Never smoker Second hand tobacco smoke exposure: No Alcohol intake: current Drinks per week: 4 Alcohol use details: weekends Substance use: never Substance use type: does not use Do You Feel Safe in your Home?: Yes Lack of Transportation: No Lack of Food: Never True Current Housing: I Have Housing Concerned About Future Housing: No Difficulty Paying Gas/Electric Bills: No Difficulty Paying for Meds: No Currently Unemployed: YES Education: Trade/Vocational Certificate Difficulty w/ Childcare or Family Care: No Living arrangements: with family Additional living arrangements comments: Occupation/Education: unemployed Gender identity (if verbalized by the patient): Female Sexual Orientation (if Verbalized by the Patient): Straight or Heterosexual Spiritual care concerns: No <Jeannette Boss, CUSTOMER SUPPLY COORDINATOR - Last Filed: 04/06/25 19:55> Exam Narrative: GENERAL: Well-appearing, well-nourished, and in no acute distress. HEAD: Normocephalic, atraumatic. EYES: EOMI. NECK: Supple. No adenopathy or masses. No JVD CHEST: Clear to auscultation. No respiratory distress. No wheezes rales or rhonchi HEART: Regular rate and rhythm. No murmur heard. Normal peripheral pulses. EXTREMITIES: Normal range of motion. No edema, erythema. Normal radial pulse. Normal sensation SKIN: Warm, dry, no rash. NEURO: No focal deficits. Alert and oriented x3. PSYCH: Normal mood and affect <Leda Barnes PA-C - Last Filed: 04/06/25 02:02> Course Vital Signs Vital signs: Vital Signs Temperature 36.6 C 04/05/25 17:29 Pulse Rate 64 04/05/25 17:29 Respiratory Rate 16 04/05/25 17:29 Blood Pressure 116/44 L 04/05/25 17:29 Pulse Oximetry 98 04/05/25 17:29 Temperature 36.6 C 04/05/25 17:29 Pulse Rate 62 04/06/25 02:10 Respiratory Rate 13 04/06/25 02:10 Blood Pressure 108/69 04/06/25 02:10 Pulse Oximetry 100 04/06/25 02:10 <Jeannette Boss, CUSTOMER SUPPLY COORDINATOR - Last Filed: 04/06/25 19:55> Vital Signs Temperature 36.6 C 04/05/25 17:29 Pulse Rate 64 04/05/25 17:29 Respiratory Rate 16 04/05/25 17:29 Blood Pressure 116/44 L 04/05/25 17:29 Pulse Oximetry 98 04/05/25 17:29 Temperature 36.6 C 04/05/25 17:29 Pulse Rate 62 04/06/25 02:10 Respiratory Rate 13 04/06/25 02:10 Blood Pressure 108/69 04/06/25 02:10 Pulse Oximetry 100 04/06/25 02:10 <Leda Barnes PA-C - Last Filed: 04/06/25 02:02> Medical Decision Making MDM Narrative Medical decision making narrative: Patient presents emergency department for left-sided chest/arm pain. Her vitals are stable. Cbc metabolic panel without concerning findings. EKG without acute ST changes, baseline and 3 hour troponin are negative. Chest x-ray without acute cardiopulmonary abnormality. Ultrasound venous Doppler without evidence of DVT. Patient instructed to have further follow-up with primary provider. She was given warnings to return to the ER <Leda Barnes PA-C - Last Filed: 04/06/25 02:02> Differential Diagnosis Differential Diagnosis: DVT, muscle strain, cervical radiculopathy, rotator cuff tendonitis <Leda Barnes PA-C - Last Filed: 04/06/25 02:02> Vital Signs Vital Signs: Vital Signs Temperature 36.6 C 04/05/25 17:29 Pulse Rate 64 04/05/25 17:29 Respiratory Rate 16 04/05/25 17:29 Blood Pressure 116/44 L 04/05/25 17:29 Pulse Oximetry 98 04/05/25 17:29 Temperature 36.6 C 04/05/25 17:29 Pulse Rate 62 04/06/25 02:10 Respiratory Rate 13 04/06/25 02:10 Blood Pressure 108/69 04/06/25 02:10 Pulse Oximetry 100 04/06/25 02:10 <Jeannette Boss, CUSTOMER SUPPLY COORDINATOR - Last Filed: 04/06/25 19:55> Vital Signs Temperature 36.6 C 04/05/25 17:29 Pulse Rate 64 04/05/25 17:29 Respiratory Rate 16 04/05/25 17:29 Blood Pressure 116/44 L 04/05/25 17:29 Pulse Oximetry 98 04/05/25 17:29 Temperature 36.6 C 04/05/25 17:29 Pulse Rate 62 04/06/25 02:10 Respiratory Rate 13 04/06/25 02:10 Blood Pressure 108/69 04/06/25 02:10 Pulse Oximetry 100 04/06/25 02:10 <Leda Barnes PA-C - Last Filed: 04/06/25 02:02> Lab Data Lab results reviewed: Yes I reviewed the patient's lab results. <Leda Barnes PA-C - Last Filed: 04/06/25 02:02> Result diagrams: 04/05/25 19:57 04/05/25 19:57 <Jeannette Boss APRN - Last Filed: 04/06/25 19:55> Labs: Lab Results 04/05/25 04/05/25 Range/Units 19:57 22:46 WBC 7.2 (4.5-10.0) K/mm3 RBC 4.71 (4.2-5.4) M/mm3 Hgb 13.5 (12.0-15.0) g/dL Hct 42.1 (37.0-47.0) % MCV 89.4 (80-100) fl MCH 28.7 (26-34) pg MCHC 32.1 (32-36) g/dl RDW 12.8 (11.5-14.5) % Plt Count 298 (150-375) k/mm3 MPV 9.7 (7.4-10.4) fl Immature Gran % (Auto) 0.3 (0-0.5) % Neut % (Auto) 54.7 (45.5-73.1) % Lymph % (Auto) 34.4 (18.3-44.2) % Davison % (Auto) 7.4 (2.6-8.5) % Eos % (Auto) 2.5 (0-4.4) % Baso % (Auto) 0.7 (0.2-1.2) % Lymph # (Auto) 2.46 (0.9-3.2) K/mm3 Davison # (Auto) 0.5 (0.1-0.6) K/mm3 Eos # (Auto) 0.2 (0-0.3) K/mm3 Baso # (Auto) 0.1 (0.0-0.1) K/mm3 Abs Immat Gran (auto) 0.02 (0.00-0.031) K/mm3 Absolute Neuts (auto) 3.9 (1.3-6.7) K/mm3 Absolute Nucleated RBC 0.000 (0.0-0.012) K/mm3 Nucleated RBC % 0.0 (0.0-0.2) % Sodium 138 (137-145) mmol/L Potassium 3.9 (3.4-5.0) mmol/L Chloride 103 (98-107) mmol/L Carbon Dioxide 29 (22-30) mmol/L Anion Gap 6 (4-12) mmol/L BUN 9 D (7-17) mg/dL Creatinine 0.87 (0.7-1.0) mg/dL Estim Creat Clear Calc 57 ml/min Estimated GFR > 60 (59 - ) Glucose 104 (65-110) mg/dL Calcium 9.0 (8.4-10.2) mg/dL Total Bilirubin 0.3 (0.2-1.3) mg/dL AST 25 (14-36) U/L ALT 14 (6-35) U/L Alkaline Phosphatase 63 (38-126) U/L Troponin I < 0.012 < 0.012 (0.000-0.034) ng/mL Total Protein 7.8 (6.3-8.2) g/dL Albumin 4.5 (3.5-5.1) g/dL <Jeannette Boss, CUSTOMER SUPPLY COORDINATOR - Last Filed: 04/06/25 19:55> Lab Results 04/05/25 04/05/25 Range/Units 19:57 22:46 WBC 7.2 (4.5-10.0) K/mm3 RBC 4.71 (4.2-5.4) M/mm3 Hgb 13.5 (12.0-15.0) g/dL Hct 42.1 (37.0-47.0) % MCV 89.4 (80-100) fl MCH 28.7 (26-34) pg MCHC 32.1 (32-36) g/dl RDW 12.8 (11.5-14.5) % Plt Count 298 (150-375) k/mm3 MPV 9.7 (7.4-10.4) fl Immature Gran % (Auto) 0.3 (0-0.5) % Neut % (Auto) 54.7 (45.5-73.1) % Lymph % (Auto) 34.4 (18.3-44.2) % Davison % (Auto) 7.4 (2.6-8.5) % Eos % (Auto) 2.5 (0-4.4) % Baso % (Auto) 0.7 (0.2-1.2) % Lymph # (Auto) 2.46 (0.9-3.2) K/mm3 Davison # (Auto) 0.5 (0.1-0.6) K/mm3 Eos # (Auto) 0.2 (0-0.3) K/mm3 Baso # (Auto) 0.1 (0.0-0.1) K/mm3 Abs Immat Gran (auto) 0.02 (0.00-0.031) K/mm3 Absolute Neuts (auto) 3.9 (1.3-6.7) K/mm3 Absolute Nucleated RBC 0.000 (0.0-0.012) K/mm3 Nucleated RBC % 0.0 (0.0-0.2) % Sodium 138 (137-145) mmol/L Potassium 3.9 (3.4-5.0) mmol/L Chloride 103 (98-107) mmol/L Carbon Dioxide 29 (22-30) mmol/L Anion Gap 6 (4-12) mmol/L BUN 9 D (7-17) mg/dL Creatinine 0.87 (0.7-1.0) mg/dL Estim Creat Clear Calc 57 ml/min Estimated GFR > 60 (59 - ) Glucose 104 (65-110) mg/dL Calcium 9.0 (8.4-10.2) mg/dL Total Bilirubin 0.3 (0.2-1.3) mg/dL AST 25 (14-36) U/L ALT 14 (6-35) U/L Alkaline Phosphatase 63 (38-126) U/L Troponin I < 0.012 < 0.012 (0.000-0.034) ng/mL Total Protein 7.8 (6.3-8.2) g/dL Albumin 4.5 (3.5-5.1) g/dL <Leda Barnes PA-C - Last Filed: 04/06/25 02:02> Imaging Data Radiologist's impression: ITS Impressions Chest X-Ray 04/05/25 18:01 IMPRESSION: 1. No acute cardiopulmonary findings. Ultrasound venous Doppler: No evidence of DVT <Leda Barnes PA-C - Last Filed: 04/06/25 02:02> ECG Data EKG #1: ECG completion date: 04/05/25 <AIMEE Barr Last Filed: 04/06/25 02:02> EKG Interpretation: normal rate, sinus rhythm, no ST changes and normal QT <Leda Barnes PA-C - Last Filed: 04/06/25 02:02> Critical Care Time Critical Care Time Critical Care Time: No <Leda Barnes PA-C - Last Filed: 04/06/25 02:02> Discharge Plan Discharge Clinical Impression: Arm pain, left <Jeannette Boss, - Last Filed: 04/06/25 19:55> Patient Disposition: Home <Jeannette Boss - Last Filed: 04/06/25 19:55> Condition: Stable <Jeannette Arnold November, - Last Filed: 04/06/25 19:55> Instructions: Arm Pain (ED) <Jeannette Arnold November, Last Filed: 04/06/25 19:55> Additional Instructions: Return to the emergency department if you experience fever, chest pain, shortness of breath, weakness, numbness, redness and swelling of your arm, or any other symptoms that are concerning to you. Tylenol or Ibuprofen as needed for pain Follow up with your primary care doctor <Jeannette Boss Last Filed: 04/06/25 19:55> Patient Language: [place] Verdean <Jeannette Arnold November, Last Filed: 04/06/25 19:55> Prescriptions: No Action metoprolol tartrate 50 mg tablet 25 mg PO DAILY cetirizine [Zyrtec] 10 mg tablet 10 mg PO DAILY PRN azelastine 137 mcg (0.1 %) spray,non-aerosol See Rx Instructions .ROUTE .COMPLEX Qty: 30 11RF Dose Instruction: SPRAY 1 SPRAY INTO EACH NOSTRIL TWICE A DAY FOR 30 DAYS Rx Instructions: SPRAY 1 SPRAY INTO EACH NOSTRIL TWICE A DAY FOR 30 DAYS <Jeannette Boss, CUSTOMER SUPPLY COORDINATOR - Last Filed: 04/06/25 19:55> Follow-up/Referrals: Mahin King MD [Primary Care Provider, [facility]] <Jeannette Boss, CUSTOMER SUPPLY COORDINATOR - Last Filed: 04/06/25 19:55>
[2025-04-05 20:08] LABS: Hematocrit 42.1 % (37.0-47.0); Hemoglobin 13.5 g/dL (12.0-15.0); Immature Granulocyte Percent A 0.3 % (0-0.5); Lymphocytes Absolute Auto 2.46 K/mm3 (0.9-3.2); Mean Corpuscular HGB Conc 32.1 g/dl (32-36); Mean Corpuscular Hemoglobin 28.7 pg (26-34); Mean Corpuscular Volume 89.4 fl (80-100); Nucleated Red Blood Cells Absolute Auto 0.000 K/mm3 (0.0-0.012); Nucleated Red Blood Cells Perc 0.0 % (0.0-0.2); Platelet Count Result 298 k/mm3 (150-375); Red Blood Count 4.71 M/mm3 (4.2-5.4); White Blood Count 7.2 K/mm3 (4.5-10.0)
[2025-04-05 20:18] LABS: Alanine Aminotransferase 14 U/L (6-35); Albumin Level 4.5 g/dL (3.5-5.1); Alkaline Phosphatase 63 U/L (38-126); Anion Gap 6 mmol/L (4-12); Aspartate Amino Transferase 25 U/L (14-36); Bilirubin,Total 0.3 mg/dL (0.2-1.3); Blood Urea Nitrogen 9 mg/dL (7-17); Calcium 9.0 mg/dL (8.4-10.2); Carbon Dioxide 29 mmol/L (22-30); Chloride 103 mmol/L (98-107); Estimated CRCL calculation 57 ml/min; Estimated Glomerular Filt Rate > 60; Glucose 104 mg/dL (65-110); Potassium 3.9 mmol/L (3.4-5.0); Sodium 138 mmol/L (137-145); Total Protein 7.8 g/dL (6.3-8.2)
[2025-04-05 20:29] LABS: Troponin I < 0.012 ng/mL (0.000-0.034)
[2025-04-05 23:12] LABS: Troponin I < 0.012 ng/mL (0.000-0.034)
--- OUTSIDE RECORDS SUMMARY | 2025-04-05 23:21 | XMS_ITS | Clinical Summary ---
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 Gender Identity Not on file Sexual Orientation Not on file Plan of Treatment Health Maintenance Due Date Last Done Comments Hepatitis C Virus (HCV) Screening 1977 TdaP Immunization 1977 Hepatitis B Immunization (1 of 3 - 19+ 3-dose series) 1996 Pap Smear 1998 Cervical Cancer Screening (CCS) 2007 HPV/Cotest 2007 Cologuard 2022 Colonoscopy 2022 Colorectal Cancer Screening 2022 Immunochemical Fecal Occult Blood 2022 SARS-COV-2 Immunization ( season) 2024 11/11/2020, 10/09/2020 Influenza Immunization (#1) 03/14/202504/14, 07/30/2012 Respiratory Syncytial Virus (RSV) Immunization (Adult) (1 - 1-dose 75+ series) 2052 Human Papillomavirus (HPV) Immunization Aged Out No longer eligible b ased on patient's age to complete this topic Meningococcal Immunization (ACWY) Aged Out No longer eligible b ased on patient's age to complete this topic Pneumococcal Immunization Combined Aged Out No longer eligible b ased on patient's age to complete this topic Rotavirus Immunization Aged Out No lo nger eligible based on patient's age to complete this topic"
--- OUTSIDE RECORDS SUMMARY | 2025-04-05 23:22 | XMS_ITS | Clinical Summary ---
Author Organization [facility] Address [address] [place] [address] Care Team Providers Care Blacksmith Hammer Operator Name Role Phone Mahin King MD Primary Care Provider [phone] Gregoria Pate ANP-BC Unavailable + Danny Shearer MD Unavailable + [phone] Bonita SolC Unavailable + [phone] Allergies No known active allergies Medications AZELASTINE 137 MCG/SPRAY nasal spray SPRAY 1 SPRAY INTO EACH NOSTRIL TWICE A DAY FOR 30 DAYS 3 Active ipratropium (ATROVENT) 0.03 % nasal spray INSTILL 2 SPRAYS INTO EACH NOSTRIL TWICE A DAY 3 Active cetirizine (ZYRTEC) 5 MG tablet Take 1 tablet (5 mg total) by mouth daily. Active metoprolol succinate ER (TOPROL-XL) 25 MG 24 hr tabletIndicati ons:Paroxysmal A-fib ([facility]) TAKE 1 TABLET (25 MG TOTAL) BY MOUTH DAILY. 90 tablet 1 5 Active metoprolol succinate ER (TOPROL-XL) 25 MG 24 hr tablet Take 1 tablet (25 mg total) by mouth daily. 90 tablet 3 4 03/18/20 25 Discontinued Active Problems Problem Noted Date Diagnosed Date Bradycardia 03/10/2024 Atrial flutter ([facility]) 07/26/2022 Assessment & Plan (07/26/2022 12:23 PM APPLICATION INTEGRATION ARCHITECT): Historically it sounds like the patient's symptoms occurred primarily with her atrial flutter and the rapid rates seen with this. Discussion with ablation had previously been made but on medical therapy she had done well. Paroxysmal A-fib ([facility]) Assessment & Plan (07/26/2022 12:25 PM APPLICATION INTEGRATION ARCHITECT): The patient's phone sunny states that she [...] pain Assessment & Plan (07/26/2022 12:22 PM APPLICATION INTEGRATION ARCHITECT): Patient's chest discomfort is atypical and does not likely represent coronary ischemia. She has been able to work out and has had no recurrence of her symptoms. I doubt any further investigation will be necessary unless an ischemic evaluation was not performed by [facility] prior to initiating her Multaq within the last 2 years. Encounters Date Type Department Care Team Description 04/05/2025 Telephone [facility] [address] [place] [address] Danny Shearer MD Error 04/04/2025 Telephone [facility] [address] [place] [address] Danny Shearer MD Information 03/18/2025 12:15 PM CDT [facility] [address] [address] Danny Shearer MD Holter Monitor 03/09/2025 2:00 PM CDT Office Visit [facility] [place] [address] Danny Shearer MD Follow Up 03/09/2025 1:45 PM CDT - 03/09/2025 11:59 PM CDT Hospital Encounter [facility] [address] [place] [address] Danny Shearer MD Discharge Disposition: Home or Self Care (Routine Discharge) 03/09/2025 Travel 03/08/2025 Orders Only [facility] [place] [address] Danny Shearer MD from Last 3 Months Family History Medical History Relation Comments Hypertension Maternal Grandmother Relation Status Comments Maternal Grandmother Social History Tobacco Use Types Packs/Day Years Used Date Smoking Tobacco: Never Tobacco Cessation:Counseling Given: Not Answered Alcohol Use Standard Drinks/Week Comments Yes 0 (1 standard drink = 0.6 oz pur e alcohol) Comments Unknown Sex and Gender Information Value Date Recorded Sex Assigned at Female 03/09/2025 2:02 PM CDT Legal Sex Female 4:02 PM APPLICATION INTEGRATION ARCHITECT Gender Identity Not on file Sexual Orientation Not on file Last Filed Vital Signs Vital Sign Reading Time Taken Comments Blood Pressure 96/52 03/09/2025 2:07 PM CDT Pulse 64 03/09/2025 2:07 PM CDT Temperature - - Respiratory Rate 16 03/09/2025 2:07 PM CDT Oxygen Saturation 100% 03/09/2025 2:07 PM CDT Inhaled Oxygen Concentration - - Weight 67.7 kg (149 lb 3.2 oz) 03/09/2025 2:07 P M CDT Height 160 cm (5' 3) 03/09/2025 2:07 PM CDT Body Mass Index 26.43 03/09/2025 2:07 PM CDT Plan of Treatment Upcoming Encounters Date Type Department Care Team (Late st Contact Info) Description 03/08/2026 1:15 PM CDT Office Visit [facility] [address] [place] [address] Danny Shearer MD [address] [place] [address] Health Maintenance Due Date Last Done Comments [...] HPV 2007 Mammogram Screening 2017 COVID-19 Vaccine (2024- 6 season) 2025 10/24/2021, 11/11/2020, 10/09/2020 Meningococcal B Vaccine Aged [...] on patient's age to complete this topic Procedures Procedure Name Priority Date/Time Associated Diagnosis Comments EVENT RECORDER (ECG) UP TO 30 DAYS COMPLETE Routine 04/04/2025 3:42 PM CDT Paroxysmal A-fib ([facility]) Bradycardia ECG 12-LEAD Routine 03/09/2025 2:20 PM CDT Sinus bradycardia from Last 3 Months Results * ECG 12 lead (03/09/2025 2:20 PM CDT) 03/09/2025 2:20 PM CDT Narrative [facility] - 03/12/2025 10:03 AM CDT [place] [id number] [place] [address] Test Date: 2025-03-09 Pat Name: NELA FLORENCEURIEL Department: 3 Room: Gender: Female Site Inspector: : 1975 Requested By: DANNY SHEARER Order Number: [id number] Reading MD: Danny Shearer Measurements Intervals [place] Rate: 53 P: 55 DC: 121 QRS: 58 QRSD: 86 T: 32 QT: 435 QTc: 412 Interpretive Statements SINUS BRADYCARDIA NONSPECIFIC T-WAVE ABNORMALITY Procedure Note Danny Shearer MD - 03/12/[address] [place] [address] Test Date: 2025-03-09 Pat Name: NELA THAKUR Department: 3 Room: Gender: Female Site Inspector: : 1975 Requested By: DANNY SHEARER Order Number: [id number] Reading MD: Danny Shearer Measurements Intervals [place] Rate: 53 P: 55 DC: 121 QRS: 58 QRSD: 86 T: 32 QT: 435 QTc: 412 Interpretive Statements SINUS BRADYCARDIA NONSPECIFIC T-WAVE ABNORMALITY us Danny Shearer MD ECG ORDERABLES Final Res ult [facility] from Last 3 Months Insurance [facility] Care Teams Blacksmith Hammer Operator Relationship Specialty Start Date End Date Mahin King MD [address] [place] [address] PCP - General FAMILY PRACTICE 07/24/22 Gregoria Pate [facility]- [address] [place] [address] [place] Pulp Grinder Feeder NURSE PRACTITIONER ADULT HEALTH 07/31/22 Danny Shearer MD [address] [place] [address] Consulting Physician CLINICAL CARDIAC ELECTROPHYSIOLOGY 02/09/24 Bonita Sol PA-C [address] [place] [address] [phone] Referring Physician PHYSICIAN SKATING RINK MANAGER 03/08/24
--- OUTSIDE RECORDS SUMMARY | 2025-04-05 23:22 | XMS_ITS | Encounter Summary ---
Author Organization [facility] Address [facility] [place] [address] Care Team Providers Care Loan Specialist Name Role Phone aMhin King MD Primary Care Provider [phone] Gregoria Pate ANP-BC Unavailable [phone] Danny Shearer MD Unavailable + [phone] Bonita Sol PA-C Unavailable + [phone] Reason for Visit * Reason Onset Date Comments Error 04/05/2025 Encounter Details Date Type Department Care Team ([facility] Contact Info) Description 04/05/2025 Telephone [facility] [address] [place] [address] Danny Shearer MD [address] 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 Gender Identity Not on file Sexual Orientation Not on file documented as of this encounter Plan of Treatment Upcoming Encounters Date Type Department Care Team ([facility] Contact Info) Description 03/08/2026 1:15 PM CDT Office Visit [facility] [place] [address] Danny Shearer MD [address] [place] [address] documented as of this encounter Visit Diagnoses Not on filedocumented in this encounter Care Teams Loan Specialist Relationship Specialty Start Date End Date Mahin King MD [address] [place] [address] [phone] PCP - General FAMILY PRACTICE 07/24/22 Gregoria Pate, [facility]- [address] [place] [address] [place] Traffic Counter NURSE PRACTITIONER ADULT HEALTH 07/31/22 Danny Shearer MD [address] [place] [address] Consulting Physician CLINICAL CARDIAC ELECTROPHYSIOLOGY 02/09/24 Bonita Sol PA-C [address] [place], [place] [address] Referring Physician PHYSICIAN SAND MILL OPERATOR CORE SAND 03/08/24 documented as of this encounter
--- OUTSIDE RECORDS SUMMARY | 2025-04-05 23:22 | XMS_ITS | Encounter Summary ---
Author Organization [facility] Address [facility] hospital[address] [place] [address] Care Team Providers Care Frame Feeder Name Role Phone Mahin King MD Primary Care Provider [phone] Gregoria Pate ANP- Unavailable + Danny Shearer MD Unavailable + [phone] Bonita Sol-C Unavailable + [phone] Reason for Visit * Reason Onset Date Comments Information 04/04/2025 Encounter Details Date Type Department Care Team (Late st Contact Info) Description 04/04/2025 Telephone [facility] [address] [place] [address] Danny Shearer MD [address] 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 Shearer looks normal, has no atrial fibrillation, and normal rates. Advised her that she will need to follow up with her PCP to evaluate the pain she is experiencing The patient verbalized understanding * Violet Ng MA - 04/04/2025 11:19 AM CDT Spoke to patient. She stated that she was under the understanding that she was to stop her meds andtake them as needed and the monitor was just to see if she was going to need the meds. After she stopped her metoprolol she started feeling more tired then previously when taking the medication. She also mentioned that she had enough energy to still function through out the day. The 1st day that she felt this pain was on the . Her HR was 107 at the time and she was not exercising at that time. The pain she felt was a throbbing pain and was on her left side behind her breast into her armpit. After that day the pain moved into her arm, not the muscle and was a dull pain.She stated that she would get an occasional zap of pain. Informed her that would discuss this with the RN and get back to her about it. Also advised her that if she felt the pain radiate down her arm or chest, or if the pain gets worse to head to the ER The patient verbalized understanding * Imani Clark - 04/04/2025 9:36 AM CDT Patient called stating she started wearing monitor on Mar 23, also stopped her Metoprolol on this day as well. Patient now has tiredness, having tender/soreness on left side chest that goes into her arm, feels like it is in her vein. documented in this encounter Plan of Treatment Upcoming Encounters Date Type Department Care Team (Late st Contact Info) Description 03/08/2026 1:15 PM CDT Office Visit [facility] [place] [address] Danny Shearer MD [address] [place] [address] documented as of this encounter Visit Diagnoses Not on filedocumented in this encounter Care Teams Frame Feeder Relationship Specialty Start Date End Date Mahin King MD [address] [place] [id number] PCP - General FAMILY PRACTICE 07/24/22 Gregoria Pate, [facility]- [address] [place] [address] [place] Fisheries Management Biologist NURSE PRACTITIONER ADULT HEALTH 07/31/22 Danny Shearer MD [address] [place] [address] Consulting Physician CLINICAL CARDIAC ELECTROPHYSIOLOGY 02/09/24 Bonita Sol PA-C [address] [place] [address] Referring Physician PHYSICIAN SPORTS ANNOUNCER 03/08/24 documented as of this encounter
--- OUTSIDE RECORDS SUMMARY | 2025-04-05 23:23 | XMS_ITS | Clinical Summary ---
Author Organization [facility] [address] Address [address] [place] [address] Care Team Providers Care Exhibitions And Collections Manager Name Role Phone Mahin King MD Primary Care Provider [phone] Allergies No known active allergies Medications azelastine [...] on file Legal Sex Female 12:07 AM FORESTRY WORKER Gender Identity Not on file Sexual Orientation Not on file Obstetrics History Last Filed Vital Signs Vital Sign Reading Time Taken Comments Blood Pressure 118/60 08/08/2021 9:14 AM FORESTRY WORKER Pulse 67 08/08/2021 9:14 AM FORESTRY WORKER Temperature - - Respiratory Rate 15 04/18/2021 11:1 5 AM CDT Oxygen Saturation - - Inhaled Oxygen Concentration - - Weight 64.3 kg (141 lb 12.8 oz) 08/08/2021 9:14 AM FORESTRY WORKER Height 160 cm (5' 3) 08/08/2021 9:14 AM FORESTRY WORKER Body Mass Index 25.12 08/08/2021 9:14 AM FORESTRY WORKER Plan of Treatment Health Maintenance Due Date Last Done Comments Breast Cancer Screening-Mammogram 1975 Cervical Cancer Screening 1975 Colon Cancer Screening-Colonoscopy 1975 Depression Screening 1975 Hepatitis C Screening 1975 DTaP/Tdap/Td Vaccine (1 - Tdap) 1988 Hepatitis B Screening 1995 Regular Well Visit/Exam 18-64 1995 Covid-19 Vaccine (3 - 2024-2 6 season) 2025 11/11/2020, 10/09/2020 Influenza Vaccine (#1) 2025 0, 07/30/2012 Pneumococcal vaccine <65 Aged Out No longer eligible based on patient's age to complete this topic Insurance [facility] BLUE ACCESS [place] BLUE ACCESS [place] Care Teams Exhibitions And Collections Manager Relationship Specialty Start Date End Date Mahin King MD [address] [place] [address] PCP - General Family Medicine 01/31/21
[2025-04-06 00:02] VITALS: BP 101/54; PULSE 59; RESP 13; O2SAT 98
[2025-04-06 00:47] VITALS: BP 103/65; PULSE 59; RESP 16; O2SAT 97
[2025-04-06 02:09] VITALS: BP 108/69; PULSE 62; RESP 13; O2SAT 100
[2025-04-06 02:10] VITALS: BP 108/69; PULSE 62; RESP 13; O2SAT 100
== END 2025-04-06 02:12 | disposition home or self-care (01) ==
PROVIDERS: Nurse Practitioner Family; Emergency Provider Physician Assistant; PCP Family Medicine
DX: M79.602 Pain in left arm (principal); I48.0 Paroxysmal atrial fibrillation; R94.31 Abnormal electrocardiogram [ECG] [EKG]
CPT/HCPCS: 36415; 71046; 80053; 84484; 85025; 93005; 93971; 99284